=== PATIENT | female | born 1950 | race Caucasian/White ===

== ENCOUNTER → 2019-10-05 17:03 | Outpatient (BNVA) | payer MEDICARE, SELFPAY | PROVIDERS: Family Provider Nurse Practitioner; PCP Nurse Practitioner; Visit Provider Nurse Practitioner | DX: I10 Essential (primary) hypertension (principal) | CPT/HCPCS: 80053; 80061; 81003 ==

== ENCOUNTER → 2020-03-28 09:32 | Outpatient (BNVA) | payer MEDICARE, SELFPAY | PROVIDERS: Family Provider Nurse Practitioner; PCP Nurse Practitioner; Visit Provider Nurse Practitioner | DX: I10 Essential (primary) hypertension (principal); E78.2 Mixed hyperlipidemia; K76.0 Fatty (change of) liver, not elsewhere classified; E78.5 Hyperlipidemia, unspecified | CPT/HCPCS: 80053; 80061; 81000; 84443 ==

== ENCOUNTER → 2020-09-26 10:42 | Outpatient (BNVA) | payer MEDICARE, SELFPAY | PROVIDERS: Family Provider Nurse Practitioner; PCP Nurse Practitioner; Visit Provider Nurse Practitioner Family | DX: J02.9 Acute pharyngitis, unspecified (principal); J03.90 Acute tonsillitis, unspecified | CPT/HCPCS: 87071; 87880 ==

== ENCOUNTER → 2020-10-18 13:25 | Outpatient (BNVA) | payer MEDICARE, SELFPAY | PROVIDERS: Family Provider Nurse Practitioner; PCP Nurse Practitioner; Visit Provider Nurse Practitioner | DX: J02.0 Streptococcal pharyngitis (principal) | CPT/HCPCS: 87880 ==

== ENCOUNTER → 2020-10-21 10:57 | Outpatient (BNVA) | payer MEDICARE, SELFPAY | PROVIDERS: PCP Nurse Practitioner; Visit Provider Nurse Practitioner Family | DX: S82.831A Other fracture of upper and lower end of right fibula, initial encounter for closed fracture (principal); W19.XXXA Unspecified fall, initial encounter | CPT/HCPCS: 73610 ==

== ENCOUNTER → 2020-10-27 11:46 | Outpatient (BNVA) | payer MEDICARE, SELFPAY | PROVIDERS: PCP Family Medicine; Visit Provider Family Medicine | DX: S82.831A Other fracture of upper and lower end of right fibula, initial encounter for closed fracture (principal); E78.2 Mixed hyperlipidemia; I10 Essential (primary) hypertension; W19.XXXA Unspecified fall, initial encounter; Y93.K9 Activity, other involving animal care | CPT/HCPCS: 80053; 80061; 84443; 85025 ==

== ENCOUNTER → 2021-01-31 10:00 | Outpatient (BNVA) | payer MEDICARE, SELFPAY | PROVIDERS: PCP Family Medicine; Visit Provider Family Medicine | DX: I10 Essential (primary) hypertension (principal); E78.2 Mixed hyperlipidemia | CPT/HCPCS: 80053; 80061; 84443; 85025 ==

== ENCOUNTER 2021-04-14 09:59 | Outpatient (CLI) | payer MEDICARE, SELFPAY ==
--- NOTE | 2021-04-14 10:08 | MM_ITS ---
WS: [id number] Exam: [id number] Date/Time of Exam: 04/14/2021 10:16 AM Reason For Exam: SCREENING VIEWS: MLO and CC views both breasts. Comparison made with prior exam of 08/07/2017, 11/07/2018. Findings: There was no sign of mass, architectural distortion or suspicious calcification in either breast. Fa [place]ty [id number] Impression: BI-RADS: 2-Benign FOLLOW-UP: 1 Year Follow-up This mammogram was also analyzed by the Computer Aided Detection System R2 Imag e Field Merchandiser.
== END 2021-04-14 10:00 | disposition home or self-care (01) ==
LOC: RADSHAW 10:06
PROVIDERS: PCP Family Medicine; Visit Provider Family Medicine
DX: Z12.31 Encounter for screening mammogram for malignant neoplasm of breast (principal)
CPT/HCPCS: 77067

== ENCOUNTER → 2021-07-17 10:10 | Outpatient (BNVA) | payer MEDICARE, SELFPAY | PROVIDERS: PCP Family Medicine; Visit Provider Family Medicine | DX: I10 Essential (primary) hypertension (principal); E78.2 Mixed hyperlipidemia | CPT/HCPCS: 80053; 80061; 84443; 85025 ==

== ENCOUNTER → 2021-08-15 13:28 | Outpatient (BNVA) | payer MEDICARE, SELFPAY | PROVIDERS: PCP Family Medicine; Visit Provider Nurse Practitioner Family | DX: Z11.52 Encounter for screening for COVID-19 (principal); Z20.822 Contact with and (suspected) exposure to COVID-19 | CPT/HCPCS: 87635 ==

== ENCOUNTER → 2021-11-14 10:22 | Outpatient (BNVA) | payer MEDICARE, SELFPAY | PROVIDERS: PCP Family Medicine; Visit Provider Nurse Practitioner Family | DX: I10 Essential (primary) hypertension (principal); E78.2 Mixed hyperlipidemia; Z78.0 Asymptomatic menopausal state; T78.40XA Allergy, unspecified, initial encounter | CPT/HCPCS: 80053; 80061; 82306 ==

== ENCOUNTER 2022-03-12 20:12 | Emergency (ER) | payer MEDICARE, SELFPAY ==
[2022-03-12 20:18] VITALS: BP 201/99; PULSE 88; RESP 14; TEMP 36.4; O2SAT 96; BMI 33.8
[2022-03-12 22:20] VITALS: BP 184/111; PULSE 95; RESP 20
[2022-03-12 22:30] VITALS: BP 202/97; PULSE 67; O2SAT 97
--- NOTE | 2022-03-12 22:33 | ED_ITS ---
HPI - Animal Bite General: Chief Complaint: Animal Bite Stated Complaint: Bite by dog on RT forearm Time Seen by Provider: 03/12/22 22:23 Source: patient Mode of arrival: ambulatory Limitations: no limitations History of Present Illness: 71-year-old female states that he been having a stray dog hanging out at their house for quite some time. She states he been feet and he acted like he was tame the she tried to catch him today and he bit her on the right arm. She does have 2 puncture wounds to the right arm states she has slight pain there she rates a 1 out of 10. She also tripped and hit her chin she denies any pain currently denies headache denies any loss of consciousness. Denies any neck pain. Associated symptoms: Deny chills, fever(s) or headache(s) Review of Systems Const: Denies: fever(s), chills, body aches or change in appetite Eyes: Denies: blurry vision or eye discomfort ENMT: Denies: throat pain or dental pain Card: Denies: chest pain Resp: Denies: dyspnea GI: Denies: abdominal pain, nausea, vomiting or diarrhea : Denies: dysuria Musc: Reports: extremity pain; Denies: neck pain or back pain Skin/Breast: Denies: rash Neuro: Denies: headache(s) Psych: Denies: depression Vishnu/Lymph: Denies: easy bruising All/Imm: Denies: urticaria PFSH ED PFSH: Medical History BMI 33.0-33.9,adult Fatty infiltration of liver HTN, goal below 130/80 Mixed hyperlipidemia Surgical History History of tubal ligation 1981 Family History Grandmother No problems noted. Mother Cancer Social History Smoking and tobacco status: never smoked Second hand smoke exposure: No Smoking risk assessment/counseling performed?: No Alcohol intake: never Desire information about alcohol rehabilitation?: No Counseling given: No Desire information about substance/drug rehabilitation?: No Counseling given: No Caregiver/support person: No Lives independently: Yes Household members: spouse Marital status: Highest education level completed: GED or Equivalent service: No Current occupational status: retired History of recent travel: No Current gender identity: Female Physical Exam Const: COMMON NORMALS: no acute distress, patient oriented x3 and healthy appearing HENMT: COMMON NORMALS: normocephalic and atraumatic HEAD & SCALP: normocephalic and atraumatic OTHER: Abrasion noted to the chin no laceration Eye: COMMON NORMALS: Equal, round and reactive pupils present and EOMs intact bilaterally PUPIL: Yes Equal, round and reactive pupils present Neck/C-Spine: COMMON NORMALS: full ROM and supple Chest: COMMONS NORMALS: normal inspection of the chest Resp: COMMON NORMALS: normal respiratory effort Cardio: COMMON NORMALS: regular rate, regular rhythm and No murmurs present (Cardio) RATE: regular rate RHYTHM: regular rhythm GI: INSPECTION: Yes normal to inspection Extremity: COMMON NORMALS: full ROM Neuro: COMMON NORMALS: patient oriented x3, moves all extremities and no focal motor deficits Psych: COMMON NORMALS: mental status grossly normal, Normal thought process present and cooperative THOUGHT PROCESS: Normal thought process present Skin: COMMON NORMALS: no rashes or lesions noted NARRATIVE SKIN EXAM: 2 small puncture wounds to right forearm no tenderness or deformities GENERAL SKIN EXAM: no rashes or lesions noted Course Vital Signs: Vital signs: Vital Signs Temperature 97.5 F L 03/12/22 20:18 Pulse Rate 67 03/12/22 22:30 Respiratory Rate 20 H 03/12/22 22:20 Blood Pressure 202/97 03/12/22 22:30 Pulse Oximetry 97 03/12/22 22:30 [facility] - Animal Bite Medical Decision Making Patient presents after dog bite. We will place her on antibiotics prophylactically she is up-to-date on her tetanus. They state they do have access to the dog informed may need to call animal control to come capture the dog and to watch for rabies I informed them if they are unable to capture the dog she is to return for rabies vaccination they understand agree to plan. Discharge Plan Discharge Patient Disposition: Home Clinical Impression: Dog bite Qualifiers: Encounter type: initial encounter Qualified Code(s): W54.0XXA - Bitten by dog, initial encounter Condition: Stable Prescriptions: New Augmentin 500-125 mg tablet 1 tab PO BID Qty: 14 0RF No Action krill oil 500 mg capsule PO DAILY 0RF cetirizine [Zyrtec] 10 mg tablet 10 mg PO .qhs PRN (Reason: allergy symptoms) Qty: 90 1RF hydrochlorothiazide 25 mg tablet 25 mg PO DAILY Qty: 90 1RF lisinopril 20 mg tablet 20 mg PO DAILY Qty: 90 1RF Rx Instructions: She stopped taking valsartan and restarted lisinopril cholecalciferol (vitamin D3) 125 mcg (5,000 unit) capsule 125 mcg PO DAILY 90 Days Qty: 90 2RF Discharge Orders: Discharge ED (Routine); Ordered 03/12/22 Ordered By: [place] Referrals: Jaqueline Varela MD [Primary Care Provider] - 1-3 days Discharge Diet: Advance as tolerated Discharge Activity: Resume usual activity Patient Instructions: Animal Bite (ED) Coding Level of Care Code ED Interactive Digital Media Specialist for Demarco Hair
[2022-03-12] MEDS: amoxicillin-clav 875-125 mg Tablet 1 TAB PO (22:40)
[2022-03-12 22:44] VITALS: BP 179/102; PULSE 87; RESP 16; O2SAT 96
== END 2022-03-12 22:46 | disposition home or self-care (01) ==
PROVIDERS: Emergency Provider Emergency Medicine; PCP Family Medicine
DX: S41.151A Open bite of right upper arm, initial encounter (principal); W54.0XXA Bitten by dog, initial encounter; I10 Essential (primary) hypertension; E78.2 Mixed hyperlipidemia
CPT/HCPCS: 99283

== ENCOUNTER → 2022-03-14 09:08 | Outpatient (BNVA) | payer MEDICARE, SELFPAY | PROVIDERS: PCP Family Medicine; Visit Provider Family Medicine | DX: E78.2 Mixed hyperlipidemia (principal); I10 Essential (primary) hypertension; E55.9 Vitamin D deficiency, unspecified | CPT/HCPCS: 80053; 80061; 82306; 84443; 85025 ==

== ENCOUNTER → 2022-04-10 16:41 | Outpatient (BNVA) | payer MEDICARE, SELFPAY | PROVIDERS: PCP Family Medicine; Visit Provider Nurse Practitioner Family | DX: I10 Essential (primary) hypertension (principal); F32.A Depression, unspecified; E78.2 Mixed hyperlipidemia; E55.9 Vitamin D deficiency, unspecified; G47.00 Insomnia, unspecified | CPT/HCPCS: 80053 ==

== ENCOUNTER 2022-06-28 08:41 | Outpatient (CLI) | payer MEDICARE, SELFPAY ==
--- NOTE | 2022-06-28 08:47 | MM_ITS ---
WS: [id number] BILATERAL SCREENING DIGITAL TOMOSYNTHESIS MAMMOGRAM WITH CAD HISTORY: SCREENING COMPARISON: 04/14/2021 and 11/07/2018 Bilateral CC and MLO views with tomosynthesis and synthetic mammography submitted. Computer aided det ection analyzed. Breast composition: There are scattered areas of fibroglandular density. No suspicious masses, microc alcifications or architectural distortion. Benign calcification RIGHT breast. MM/[id number] IMPRESSION: BI-RADS: 2-Benign FOLLOW UP: 1 Year Follow-up
== END 2022-06-28 08:42 | disposition home or self-care (01) ==
LOC: RAD 08:43
PROVIDERS: PCP Nurse Practitioner Family; Visit Provider Nurse Practitioner Family
DX: Z12.31 Encounter for screening mammogram for malignant neoplasm of breast (principal)
CPT/HCPCS: 77063; 77067

== ENCOUNTER → 2022-10-23 08:53 | Outpatient (BNVA) | payer MEDICARE, SELFPAY | PROVIDERS: PCP Nurse Practitioner Family; Visit Provider Nurse Practitioner Family | DX: Z00.00 Encounter for general adult medical examination without abnormal findings (principal); G47.00 Insomnia, unspecified; F32.A Depression, unspecified; E55.9 Vitamin D deficiency, unspecified; Z78.0 Asymptomatic menopausal state; E78.2 Mixed hyperlipidemia; K76.0 Fatty (change of) liver, not elsewhere classified; I10 Essential (primary) hypertension | CPT/HCPCS: 80053; 80061; 82306; 82607; 84443; 85025 ==

== ENCOUNTER 2023-07-01 12:31 | Outpatient (CLI) | payer MEDICARE, SELFPAY ==
--- NOTE | 2023-07-01 12:37 | XR_ITS ---
WS: [id number] DEXA (DUAL ENERGY X-RAY ABSORPTIOMETRY) Bone mineral density was performed using a Spiral[employer] machine. HISTORY: screening COMPARISON: None available. Lumbar spine BMD (L1-L4): 1.243 g/cm2 T score: 0.5 Z score: 1.6 Total hip BMD: Left: 1.121 g/cm2. T score: 0.9 Z score: 2.0 Right: 1.107 g/cm2. T score: 0.8 Z score: 1.9 10 year probability of a major osteoporotic fracture is 11.6%. IMPRESSION: NORMAL BONE MINERAL DENSITY based upon the WHO classification for females.
--- NOTE | 2023-07-01 13:00 | MM_ITS ---
WS: [id number] VIEWS: MLO and CC views both breasts. 3D digital tomosynthesis is also included in this exam. Comparison made with prior exam of 04/21/2014, 07/20/2015, 08/07/2017, 11/07/2018, 04/14/2021, 06/28/2022. . Findings: There was no sign of mass, architectural distortion or suspicious calcification in either breast. The breasts are almost entirely fatty Impression: MM/[id number] BI-RADS: 1-Negative FOLLOW-UP: 1 Year Follow-up This mammogram was also analyzed by the Computer Aided Detection System R2 Imag e Integration Project Manager.
== END 2023-07-01 12:32 | disposition home or self-care (01) ==
LOC: RAD 12:31
PROVIDERS: PCP Family Medicine; Visit Provider Family Medicine
DX: Z12.31 Encounter for screening mammogram for malignant neoplasm of breast (principal); Z78.0 Asymptomatic menopausal state
CPT/HCPCS: 77063; 77067; 77080

== ENCOUNTER 2024-03-06 19:59 | Emergency (ER) | payer MEDICARE, SELFPAY ==
[2024-03-06 20:06] VITALS: BP 182/95; PULSE 82; RESP 14; TEMP 36.6; O2SAT 98
--- NOTE | 2024-03-06 20:10 | XRR_ITS ---
PROCEDURE INFORMATION: Exam: XR Left Knee Exam date and time: 03/06/2024 8:17 PM Age: 73 years old Clinical indication: Injury or trauma; Patient HX: Lt knee pain post fall onto concrete TECHNIQUE: Imaging protocol: Radiologic exam of the left knee. Views: 3 views. COMPARISON: No relevant prior studies available. FINDINGS: Bones/joints: A transverse fracture seen through the midportion of the patella. Lateral view demonstrates approximately 5 mm cortical offset along the posterior cortical margin of the fracture site. No other fracture is seen about the left knee. No significant joint space narrowing. No significant suprapatellar fullness or effusion is seen on the lateral view. Soft tissues: Mild soft tissue swelling. XR/XR knee LT 3V* [id number] IMPRESSION: Transverse fracture through the mid aspect of the left patella as noted above.
--- NOTE | 2024-03-06 20:16 | W.ED.LOWEXIN ---
HPI - Extremity Injury (Lower) General: Chief Complaint: Extremity Injury, Lower Stated Complaint: Left leg injury Time Seen by Provider: 03/06/24 20:10 Source: patient Mode of arrival: wheelchair Limitations: no limitations History of Present Illness: Patient is a nice 73-year-old female presents to ED today for evaluation of a left knee injury that she sustained just prior to arrival. Patient states she was trying to step over a stair when she accidentally tripped and fell directly onto the left knee. She is complaining of pain directly over her left patella. She is not able to bear weight secondary to pain. No other injury sustained. MD complaint: knee injury Onset (ago): hour(s) Injury: Left: knee Place: home Severity: severe Relieving factors: immobilization Exacerbating factors: weight bearing, movement and palpation Context: direct blow and walking (tripped) Associated symptoms: Reports inability to bear weight Other symptoms: none Review of Systems Musc: Reports: joint pain (L knee); Denies: neck pain, back pain, extremity pain, extremity swelling or joint swelling Neuro: Reports: difficulty walking (secondary to pain in L knee); Denies: numbness in extremities, weakness in extremities or sensory changes PFSH ED PFSH: Medical History Fatty infiltration of liver Mixed hyperlipidemia BMI 33.0-33.9,adult HTN, goal below 130/80 Surgical History History of colonoscopy History of tubal ligation 1981 Family History Grandmother No problems noted. Mother Cancer breast Other Diabetes Hypertension Denies family history of CAD (coronary artery disease) Clotting disorder Dementia Hyperlipidemia Psychiatric illness Chronic kidney disease (CKD) Anesthesia complication Bleeding disorder Lung disease Stroke Social History Smoking and tobacco/nicotine status: former use of tobacco/nicotine Second hand smoke exposure: No Alcohol intake: never Substance/Drug Use: never Caregiver/support person: No Lives independently: Yes Household members: spouse Marital status: Highest education level completed: GED or Equivalent service: No Current occupational status: retired Do you think of yourself as: Straight/Heterosexual Current gender identity: Female and Decline to Answer Special atul needs: No Agree to transfusion: Yes Female Reproductive History: Date of menopause: 01/17/99 Physical Exam Const: COMMON NORMALS: no acute distress, average body habitus, patient oriented x3, no limitations, healthy appearing, alert and well nourished Extremity: COMMON NORMALS: capillary refill normal, no clubbing, cyanosis or edema, no calf tenderness and no pedal edema GENERAL: Yes normal exam except as noted LEFT LOWER EXTREMITY: Yes knee joint Left knee: Yes palpation (directly tender over L patella), Yes ROM (limited secondary to patellar tenderness) and Yes neurovascular exam (normal) Neuro: COMMON NORMALS: patient oriented x3, moves all extremities, no focal motor deficits and no sensory deficits noted SENSORIUM/ORIENTATION: Yes alert Skin: TRAUMA: no lacerations or abrasions Course Consultations: Consultation #1: Dr. Sutton-agrees with plan for knee immobilizer and he will see early next week to discuss surgery Vital Signs: Vital signs: Vital Signs Temperature 97.9 F 03/06/24 20:06 Pulse Rate 82 03/06/24 20:06 Respiratory Rate 17 03/06/24 20:35 Blood Pressure 182/95 03/06/24 20:06 Pulse Oximetry 98 03/06/24 20:35 Oxygen Delivery Me thod Room Air 03/06/24 20:06 MDM - Extremity Injury (Lower) Medical Decision Making Patient is a very nice 73-year-old female here following a trip and fall directly onto her left anterior knee. She has a complete transverse displaced patellar fracture. Imaging was sent to Dr. Sutotn for review. Patient will be placed in a knee immobilizer, nonweightbearing, and he will see you early next week to discuss surgical options. Patient was able to ambulate here with crutches. She will be sent with pain medications for this evening as well as prescription to fill in the morning. Case management should reach out to her early next week to help set her up with her ortho appointment. Medical Records I reviewed the patient's medical records. XR interpretation done by ED provider, pending radiology final review (Personal interpretation shows a complete displaced transverse patellar fracture) Discharge Plan Discharge Patient Disposition: Home Clinical Impression: Closed fracture of left patella Qualifiers: Encounter type: initial encounter Fracture morphology: transverse Fracture alignment: displaced Qualified Code(s): S82.032A - Displaced transverse fracture of left patella, initial encounter for closed fracture Condition: Stable Prescriptions: New hydrocodone-acetaminophen 5-325 mg tablet 1 - 2 tab PO .q4-6 PRN (Reason: pain) Qty: 20 0RF No Action krill oil 500 mg capsule PO DAILY cholecalciferol (vitamin D3) 125 mcg (5,000 unit) capsule 125 mcg PO DAILY 90 Days Qty: 90 1RF aspirin [Adult Low Dose Aspirin] 81 mg tablet,delayed release (DR/EC) 81 mg PO DAILY multivitamin Tablet 1 tab PO DAILY PRN famotidine 20 mg tablet 20 mg PO DAILY meloxicam 15 mg tablet 15 mg PO DAILY Qty: 60 1RF lisinopril 20 mg tablet 40 mg PO DAILY 90 Days Qty: 180 1RF hydrochlorothiazide 25 mg tablet See Rx Instructions .ROUTE .COMPLEX Qty: 90 1RF Dose Instruction: TAKE 1 TABLET BY MOUTH EVERY DAY Rx Instructions: TAKE 1 TABLET BY MOUTH EVERY DAY Discharge Orders: Discharge ED (Routine); Ordered 03/06/24 Ordered By: Jeanne Saldana Referrals: Kodak Sutton DO [Physician] - Michael Nichols MD [Primary Care Provider] - Patient Instructions: Patellar Fracture (ED), Knee Immobilizer (ED), Opioid Safety, Pain Management Activity Restrictions/Additional Instructions: As we discussed you need to stay in your knee immobilizer at all times apart from showering or bathing. No weightbearing until you follow-up with Dr. Sutton with orthopedics next week. You may use your pain medications as needed to relieve discomfort. You may also ice and elevate the extremity. Dr. Sutton will speak to you about surgical options next week at your follow-up appointment. Case management should reach out to you on Saturday to help set you up with this appointment. Coding Level of Care Code ED Applied Psychology Chair for Demarco Hair
[2024-03-06 20:35] VITALS: RESP 17; O2SAT 98
[2024-03-06] MEDS: morphine 4 mg/mL SDV 1 mL IM (20:35)
[2024-03-06] MEDS: ondansetron 2 mg/ML SDV 2 mL 4 MG IM (20:36)
[2024-03-06] MEDS: HYDROcodone-acetaminophen 5-325 mg Tablet 2 TAB PO (21:23)
[2024-03-06 21:34] VITALS: BP 179/90; PULSE 89; RESP 18; O2SAT 97
--- NOTE | 2024-03-11 07:45 | DCPLANNER ---
messaged ortho for er f/u
== END 2024-03-06 21:30 | disposition home or self-care (01) ==
PROVIDERS: Emergency Provider Physician Assistant; PCP Family Medicine
DX: S82.032A Displaced transverse fracture of left patella, initial encounter for closed fracture (principal); Z79.82 Long term (current) use of aspirin; Z87.891 Personal history of nicotine dependence; E78.2 Mixed hyperlipidemia; I10 Essential (primary) hypertension; W01.0XXA Fall on same level from slipping, tripping and stumbling without subsequent striking against object, initial encounter
CPT/HCPCS: 73562; 96372; 99284; J2270; J2405

== ENCOUNTER → 2024-03-12 13:01 | Outpatient (BNVA) | payer MEDICARE, SELFPAY | PROVIDERS: PCP Family Medicine; Referring Provider Physician Assistant; Visit Provider Orthopaedic Surgery | DX: S82.032A Displaced transverse fracture of left patella, initial encounter for closed fracture (principal); X58.XXXA Exposure to other specified factors, initial encounter | CPT/HCPCS: 73562; 99204 ==

== ENCOUNTER 2024-03-13 11:36 | Day surgery (SDC) | payer MEDICARE, SELFPAY ==
[2024-03-12 16:14] LABS: Add Urine Microscopic? NO; Charge for UA Resulting for Rev
[2024-03-12 16:18] LABS: Bilirubin Urine Neg (Negative); Blood Urine Neg (Negative); Glucose Urine UA Norm (Normal); Ketones Urine 1+ (Negative); Leukocyte Esterase Urine Negative (Negative); Nitrate Urine Negative (Negative); Protein Urine Neg (Negative); Specific Gravity, Urine 1.005 (1.005-1.030); Urine Appearance Clear (CLEAR); Urine Color Yellow (Yellow); Urobilinogen Urine Norm (Negative); pH Urine 7 (5-7)
[2024-03-12 16:23] LABS: Basophils # 0.1 10^3/uL (0.0-0.1); Basophils % 0.7 %; Eosinophils # 0.1 10^3/uL (0.0-0.8); Eosinophils % 1.3 %; Hematocrit 45.9 % (36-47); Lymphocytes # 2.6 10^3/uL (0.8-4.8); Lymphocytes % 24.6 %; Mean Corpuscular Hemoglobin 29.7 pg (27-33); Mean Corpuscular Volume 87.3 fl (85-98); Mean Platelet Volume 11.1 fL (7.4-10.4); Monocytes # 0.6 10^3/uL (0.2-0.9); Monocytes % 5.6 %; Neutrophils # 7.02 10^3/uL (1.8-7.7); Neutrophils % 67.5 %; Nucleated Red Blood Cells % 0 %; Platelet Count 335 10^3/cmm (157-399); Red Blood Count 5.26 10^6/uL (3.85-5.65); Red Cell Distribution Width 12.7 % (12.1-15.1)
[2024-03-12 19:01] LABS: Alanine Aminotransferase 50 U/L (0-33); Albumin Level 4.9 g/dL (3.5-5.2); Alkaline Phosphatase 89 U/L (35-105); Aspartate Amino Transferase 34 U/L (0-32); Blood Urea Nitrogen 10 mg/dL (8-23); Carbon Dioxide 27 mmol/L (22-29); Chloride 94 mmol/L (98-107); Globulin 3.5 g/dL (1.3-4.6); Glucose 95 mg/dL (65-115); Osmolality Calculated 279 mOsm/kg (285-295); Sodium 135 mmol/L (136-145); Total Bilirubin 0.5 mg/dL (0.15-1.2); Total Protein 8.4 g/dL (6.6-8.7)
[2024-03-13] VITALS (15 sets, daily range): BP systolic 148–211; BP diastolic 76–98; PULSE 82–99; RESP 13–18; TEMP 36.2–36.9; O2SAT 92–98; BMI 31.1
[2024-03-13] MEDS: sodium chloride 0.9% 1,000 ML 30 ML (12:29)
--- NOTE | 2024-03-13 12:37 | P.ANESASSM_ITS ---
Pre-Anesthetic Assessment Height/Weight: Height 1.57 m Weight 77.111 kg O2 Del Method Room Air 03/13/24 12:05 Preop Diagnosis: Left patella fracture Operation Date: 03/13/24 13:30 Proposed Procedures p ORIF Patella(Left) - Savage Becker DO Familial anesthetic complications: None Was Beta Geoff taken within 24 hours: N/A Was Clonidine taken within 24 hours: N/A Last intake: Intake Last Liquid Date 03/13/24 Last Liquid Time 07:30 Last Solid Date 03/12/24 Last Solid Time 19:00 Social No alcohol and No tobacco Exam alert, oriented x 3, clear to auscultation bilaterally and regular rate & rhythm Airway Mallampati: Class I Dentition: false CV/HEM Hypertension GI Gastroesophageal Reflux Disease Anesthetic Plan ASA status: 2 Anesthesia: General Risk of > 500 ml blood loss (7ml/kg in children): No Medications/Allergies Home Medications Medication Instructions Recorded Confirmed Last Taken Type krill oil 500 mg capsule 500 mg PO DAILY 07/17/21 03/12/24 03/11/24 History cholecalciferol (vitamin D3) 125 125 mcg PO DAILY 90 days #90 caps 10/23/22 03/12/24 03/11/24 Rx mcg (5,000 unit) capsule aspirin 81 mg tablet,delayed 81 mg PO DAILY 05/28/23 03/12/24 03/06/24 History release (Adult Low Dose Aspirin) famotidine 20 mg tablet 20 mg PO DAILY 05/28/23 03/12/24 03/11/24 History meloxicam 15 mg tablet 15 mg PO DAILY #60 tabs 05/28/23 03/12/24 02/26/24 Rx multivitamin 1 tab PO DAILY 05/28/23 03/12/24 Unknown History lisinopril 20 mg tablet 40 mg (2 x 20 mg) PO DAILY 90 days 10/16/23 03/12/24 03/12/24 Rx #180 tabs hydrocodone 5 mg-acetaminophen 325 1 - 2 tab PO .q4-6 PRN pain #20 03/06/24 03/12/24 03/12/24 Rx mg tablet tabs Wheelchair with leg rest #1 ea 03/10/24 03/12/24 Unknown Rx hydrochlorothiazide 25 mg tablet 25 mg PO DAILY 03/12/24 03/12/24 03/12/24 History turmeric 400 mg capsule 400 mg PO DAILY 03/12/24 03/12/24 03/06/24 History Allergies Allergy/AdvReac Type Severity Reaction Status Date / Time [id number] Reductase Allergy Severe ALGY-Swell Verified 03/12/24 13:53 Inhibitor Lip/Tongue/Throat [facility] Anesthesia Medical History Fatty infiltration of liver Mixed hyperlipidemia BMI 33.0-33.9,adult HTN, goal below 130/80 Surgical History History of colonoscopy History of tubal ligation 1981 Family History Grandmother No problems noted. Mother Cancer breast Other Diabetes Hypertension Denies family history of CAD (coronary artery disease) Clotting disorder Dementia Hyperlipidemia Psychiatric illness Chronic kidney disease (CKD) Anesthesia complication Bleeding disorder Lung disease Stroke Social History Smoking and tobacco/nicotine status: never used tobacco/nicotine Second hand smoke exposure: No Alcohol intake: never Substance/Drug Use: never Caregiver/support person: No Lives independently: Yes Household members: spouse Marital status: Highest education level completed: GED or Equivalent service: No Current occupational status: retired Do you think of yourself as: Straight/Heterosexual Current gender identity: Female and Decline to Answer Special atul needs: No Agree to transfusion: Yes Female Reproductive History Date of menopause: 01/17/99 Data Anesthesia 03/12/24 15:46 03/12/24 15:46 Short CBC 03/12/24 Range/Units 15:46 WBC 10.40 (3.29-11.43) 10^3/uL Hgb 15.60 (11.27-16.99) g/dL Hct 45.9 (36-47) % MCV 87.3 (85-98) fl Plt Count 335 (157-399) 10^3/cmm Neut % (Auto) 67.5 % Neut # (Auto) 7.02 (1.8-7.7) 10^3/uL BMP 03/12/24 15:46 Sodium 135 L Potassium 4.0 Chloride 94 L Carbon Dioxide 27 BUN 10 Creatinine 0.5 Glucose 95 Calcium 10.0 Liver Function 03/12/24 Range/Units 15:46 Total Bilirubin 0.5 (0.15-1.2) mg/dL AST 34 H (0-32) U/L ALT 50 H (0-33) U/L Alkaline Phosphatase 89 (35-105) U/L Albumin 4.9 (3.5-5.2) g/dL Urine 03/12/24 Range/Units 15:40 Urine Color Yellow (Yellow) Urine Appearance Clear (CLEAR) Urine pH 7 (5-7) Ur Specific [place] 1.005 (1.005-1.030) Urine Protein Neg (Negative) Urine Glucose (UA) Norm (Normal) Urine Ketones 1+ H (Negative) Urine Nitrate Negative (Negative) Urine Bilirubin Neg (Negative) Ur Leukocyte Esterase Negative (Negative) Cardiac Studies: 2 No Data to Display
--- NOTE | 2024-03-13 15:00 | XR_ITS ---
WS: [id number] C-ARM RADIOGRAPHS LEFT KNEE; 4 IMAGES HISTORY: LEFT PATELLA ORIF; OR PICS COMPARISON: None available. Intraoperative imaging during ORIF displaced transverse patellar fracture. There are now 2 screws sta bilizing the fracture in good position and alignment. XR/XR knee LT 1-2V [id number] IMPRESSION: Intraoperative imaging with ORIF patellar fracture.
--- NOTE | 2024-03-13 15:33 | W.PM.OPSUD ---
Surgery/Procedure H&P Update DATE OF PROCEDURE: March 13, 2024 DATE H&P PERFORMED: 03/12/24 H&P UPDATE INFORMATION: I have reviewed H&P completed within last 30 days, I have examined patient prior to procedure and No changes to prior documentation PREOP DIAGNOSIS: Left patella fracture PLANNED PROCEDURE: Operation Date: 03/13/24 13:30 Proposed Procedures p ORIF Patella(Left) - Savage Becker DO
[2024-03-13] MEDS: ceFAZolin 2,000 mg SDV 2000 MG IVP (15:57)
[2024-03-13] MEDS: lidocaine-epi 1% 20 mL INJ INJECTION (16:40)
--- NOTE | 2024-03-13 17:10 | PM.OP ---
Operative Report Date of procedure: March 13, 2024 Pre-op diagnosis: Left patella fracture Post-op diagnosis: same Procedure done: Open reduction internal fixation of left patella fracture Surgeon: Savage Becker DO Estimated blood loss (mL): 5 Procedure: Open reduction internal fixation of left patella fracture Patient brought the operative suite after undergoing anesthesia was placed in the supine position. All areas impingement well-padded. Tourniquet was applied. Patient was prepped and draped normal sterile fashion. Skin incision was made over the patella. The ends of the patella superior pole and inferior pole were identified. The fracture was then identified the fracture fragments were cleaned out of the joint. Once the fracture ends were cleaned then the [id number] clamp was used to reduce the fracture. Once fracture was reduced then 2 wires were placed from inferior to superior. The screw lengths were measured. The drill was then placed over the wire and drilled from inferior to superior. The screws were then placed. Once screws were placed then a wire was removed and then the fiber tape was then pulled through the screw on the medial side. Using a Endy needle. Then the wire on the lateral side was removed and the wire with a fiber tape was fed through it from anterior superior pulmonary [id number] pattern with a suture and this was tied down. AP lateral fluoroscopy ensured that the fracture was in good position as was the hardware. Wounds were irrigated. The retinaculum and tissue over the patellar were closed with 0 Vicryl suture. And then the skin was closed with 2-0 Vicryl and ivone. Sterile dressings were applied and patient was transferred to the PACU in stable condition.
[2024-03-13] MEDS: labetalol 5 mg/mL SDV 20mL 10 MG IVP (17:17)
[2024-03-13] MEDS: fentaNYL 50 mcg/mL INJ 2mL IVP (17:17)
[2024-03-13] MEDS: HYDROmorphone 1 mg/mL INJ 1 mL 0.5 MG IVP ×2 (17:50→18:19)
[2024-03-13] MEDS: ketorolac 30 mg/mL INJ IVP (18:00)
[2024-03-13] MEDS: acetaminophen 1,000 MG/100 ML PIGGYBACK 400 MG IV (18:26)
--- NOTE | 2024-03-13 19:01 | ANES.PROC ---
Anesthesia Procedures Procedure/Date: 03/13/24 Nerve Block ^: Nerve Block 1: Main Anesthesia: general anesthesia Time Out Performed: Yes Consent: requested by attending/covering physician, from patient, from other, risks and benefits reviewed and patient agrees to proceed Nerve block location: adductor canal (L) Anesthesia monitors applied: pulse oximetry, EKG, BP cuff and oxygen Nerve block position: supine Anesthetic Used: ropivicaine 0.5% (30 ml) Ultrasound used to: visualize and ID femerol nerve Nerve Stimulator Used?: No Interscalene/Femoral BLK: 4 stimuplex 21 g needle used for position and inplane approach, visualize local anesthetic spread and no vascular puncture identified Injection: neg aspiration of heme Patient Tolerated Procedure: well and no complications
--- NOTE | 2024-03-13 20:10 | ANE.PACU2 ---
Inpatient post-anesthesia follow up: Airway intact: Yes Vital signs: Temperature 98.4 F Pulse Rate 96 Respiratory Rate 16 Blood Pressure 148/76 Pulse Oximetry 95 Oxygen Delivery Me thod Room Air Oxygen Flow Rate 1 Fraction of Inspir ed Oxygen Hydration adequate: Yes Nausea and vomiting: No Pain level: 1 Mental status: Baseline
== END 2024-03-13 20:08 | disposition home or self-care (01) ==
PROVIDERS: PCP Family Medicine; Visit Provider Orthopaedic Surgery
PROC: (CPT 27524; principal; 2024-03-13 13:20)
DX: S82.032A Displaced transverse fracture of left patella, initial encounter for closed fracture (principal); X58.XXXA Exposure to other specified factors, initial encounter; I10 Essential (primary) hypertension; K21.9 Gastro-esophageal reflux disease without esophagitis; E78.2 Mixed hyperlipidemia; Z79.82 Long term (current) use of aspirin
CPT/HCPCS: 27524; 36415; 73560; 76000; 80053; 81003; 85025; C1713; J0131; J0690; J1100; J1170; J1885; J2405; J2704; J2795; J3010; J3490; J7030

== ENCOUNTER → 2024-03-26 14:19 | Outpatient (BNVA) | payer MEDICARE, SELFPAY | PROVIDERS: PCP Family Medicine; Visit Provider Orthopaedic Surgery | DX: S82.009D Unspecified fracture of unspecified patella, subsequent encounter for closed fracture with routine healing (principal); X58.XXXD Exposure to other specified factors, subsequent encounter | CPT/HCPCS: 99024 ==

== ENCOUNTER → 2024-04-09 12:50 | Outpatient (BNVA) | payer MEDICARE, SELFPAY | PROVIDERS: PCP Family Medicine; Visit Provider Orthopaedic Surgery | DX: S82.032D Displaced transverse fracture of left patella, subsequent encounter for closed fracture with routine healing (principal); X58.XXXD Exposure to other specified factors, subsequent encounter | CPT/HCPCS: 73562; 99024 ==

== ENCOUNTER → 2024-05-05 13:35 | Outpatient (BNVA) | payer MEDICARE, SELFPAY | PROVIDERS: PCP Family Medicine; Visit Provider Orthopaedic Surgery | DX: S82.032D Displaced transverse fracture of left patella, subsequent encounter for closed fracture with routine healing (principal); X58.XXXD Exposure to other specified factors, subsequent encounter; M25.562 Pain in left knee | CPT/HCPCS: 73562; 99213 ==

== ENCOUNTER → 2024-05-26 13:40 | Outpatient (BNVA) | payer MEDICARE, SELFPAY | PROVIDERS: PCP Family Medicine; Visit Provider Orthopaedic Surgery | DX: S82.032D Displaced transverse fracture of left patella, subsequent encounter for closed fracture with routine healing (principal); X58.XXXD Exposure to other specified factors, subsequent encounter | CPT/HCPCS: 73562; 99213 ==

== ENCOUNTER → 2024-06-11 11:56 | Outpatient (BNVA) | payer MEDICARE, SELFPAY | PROVIDERS: PCP Family Medicine; Visit Provider Family Medicine | DX: E55.9 Vitamin D deficiency, unspecified (principal); E78.2 Mixed hyperlipidemia | CPT/HCPCS: 80053; 80061; 82306 ==

== ENCOUNTER → 2024-10-01 13:53 | Outpatient (BNVA) | payer MEDICARE, SELFPAY | PROVIDERS: PCP Family Medicine; Visit Provider Nurse Practitioner Family | DX: R05.9 Cough, unspecified (principal); R22.1 Localized swelling, mass and lump, neck; R09.89 Other specified symptoms and signs involving the circulatory and respiratory systems; I10 Essential (primary) hypertension | CPT/HCPCS: 71046; 80053; 80061; 84439; 84443; 84481; 85025 ==

== ENCOUNTER → 2024-10-13 09:05 | Outpatient (BNVA) | payer MEDICARE, SELFPAY | PROVIDERS: PCP Family Medicine; Visit Provider Nurse Practitioner Family | DX: J18.9 Pneumonia, unspecified organism (principal) | CPT/HCPCS: 71046 ==

== ENCOUNTER 2024-10-20 08:52 | Outpatient (CLI) | payer MEDICARE, SELFPAY ==
--- NOTE | 2024-10-20 09:00 | CT_ITS ---
WS: [id number] CT NECK WITH CONTRAST HISTORY: M54.2 - Cervicalgia TECHNIQUE: Contiguous 2 mm axial images are performed through the neck with intravenous contrast. Sagittal and coronal reformats are also submitted. All CT scans at [facility] use at least one of these dose optimization techniques: automated exposure control; mA and/or kV adjustment per patient size (includes targeted exams where dose is matched to clinical indication); or iterative reconstruction. CONTRAST: CONTRAST: Omnipaque 350; 100 mL IV. DLP: 219.81 mGy.cm COMPARISON: None available. Nasopharynx, oropharynx, hypopharynx and larynx are unremarkable. No soft tissue masses or abnormal enhancement. Torus tubarius and fossa of Rosenmuller and parapharyngeal fat are normal. No significant lymphadenopathy is identified. Benign cervical chain lymph nodes. Thyroid gland and salivary glands are normally enhancing with no masses. Facet joint arthritis throughout the cervical spine. Visualized portions of the skull base demonstrate no abnormalities. Orbits and globes are within normal limits. No soft tissue masses. Visualized paranasal sinuses and mastoid air cells are normal. Lung apices are clear. CT/CT neck w con* [id number] IMPRESSION: Unremarkable neck CT. No pathological lymph nodes. No mass identified.
[2024-10-20] MEDS: iohexol 350 mg/mL 500 mL Btl (per mL) IV (09:29)
--- NOTE | 2024-10-20 09:30 | CT_ITS ---
WS: [id number] CT PARANASAL SINUSES HISTORY: J32.9 - Chronic sinusitis, unspecified TECHNIQUE: Contiguous 2.5 mm axial images obtained through the sinuses. Images are reconstructed in sagittal and coronal planes. All CT scans at [facility] use at least one of these dose optimization techniques: automated exposure control; mA and/or kV adjustment per patient size (includes targeted exams where dose is matched to clinical indication); or iterative reconstruction. DLP: 378.58 mGy.cm COMPARISON: None available. Frontal sinuses: Normal. Sphenoid sinus: Normal. Ethmoid sinuses: Normal. Maxillary sinus: Normal. Ostiomeatal unit: Widely patent ostiomeatal units. Minimal LEFT lateral nasal spurring. Normal appearance of the orbits and globes. No soft tissue bony destruction. CT/CT sinus wo con* [id number] IMPRESSION: Normal paranasal sinus CT.
== END 2024-10-20 08:53 | disposition home or self-care (01) ==
PROVIDERS: PCP Family Medicine; Visit Provider Nurse Practitioner Family
DX: J32.9 Chronic sinusitis, unspecified (principal); M47.892 Other spondylosis, cervical region; J34.89 Other specified disorders of nose and nasal sinuses; R09.81 Nasal congestion; R59.0 Localized enlarged lymph nodes
CPT/HCPCS: 70486; 70491

== ENCOUNTER 2025-02-25 13:34 | Outpatient (CLI) | payer MEDICARE, SELFPAY ==
--- NOTE | 2025-02-25 13:36 | MM_ITS ---
WS: [id number] BILATERAL 3D TOMOSYNTHESIS DIGITAL SCREENING MAMMOGRAPHY WITH CAD CLINICAL INFORMATION: SCREENING HISTORY: Screening mammogram. No current complaints. COMPARISON: 2022 TECHNIQUE: Bilateral CC and MLO views. FINDINGS: Scattered fibroglandular densities bilaterally. No suspicious focal mass, asymmetry, calcifications, or architectural distortion. No evidence of malignancy. Incidental punctate calcification RIGHT breast MM/MM scr BI tomosynthesis [id number] IMPRESSION: DENSITY: There are scattered areas of fibroglandular density. BI-RADS: 2 - Benign. FOLLOW UP: 1 Year Follow-up Recommend return to annual screening mammography.
== END 2025-02-25 13:35 | disposition home or self-care (01) ==
LOC: RAD 13:35
PROVIDERS: PCP Family Medicine; Visit Provider Nurse Practitioner Family
DX: Z12.31 Encounter for screening mammogram for malignant neoplasm of breast (principal); R92.323 Mammographic fibroglandular density, bilateral breasts; R92.1 Mammographic calcification found on diagnostic imaging of breast
CPT/HCPCS: 77063; 77067

== ENCOUNTER → 2025-03-03 13:18 | Outpatient (BNVA) | payer MEDICARE, SELFPAY | PROVIDERS: PCP Nurse Practitioner Family; Visit Provider Nurse Practitioner Family | DX: I10 Essential (primary) hypertension (principal); E78.2 Mixed hyperlipidemia; G47.00 Insomnia, unspecified | CPT/HCPCS: 80053; 80061; 84443; 85025 ==